=== PATIENT | male | born 1945 | race Caucasian/White ===

== ENCOUNTER 2017-10-12 09:13 | Day surgery (SDC) | payer MEDICARE ==
[~2017-10-12 09:13] MED LIST: ACETAMINOPHEN 1,000 MG/100 ML BTL IV ONE; FAMOTIDINE 20MG TABLET PO ONE; MECLIZINE 25 MG TABLET PO ONE; METOCLOPRAMIDE 10 MG TABLET PO ONE
[2017-10-12] MEDS ORDERED: SEVOFLURANE 250 ML INH ONE (09:14)
[2017-10-12] MEDS ORDERED: ROCURONIUM BROMIDE 50MG/5ML VIAL IV ONE (09:14)
[2017-10-12] MEDS ORDERED: BUPIVACAINE 0.25% W/EPI MPF 30ML VIAL IVP ONE (09:14)
[2017-10-12] MEDS ORDERED: MORPHINE SULFATE 5 MG/ML PFS IVP ONE (09:14)
[2017-10-12] MEDS ORDERED: PROPOFOL 10 MG/ML VIAL IV ONE (09:14)
[2017-10-12] MEDS ORDERED: LIDOCAINE 2% MDV (20MG/ML) 20ML VIAL IV ONE (09:14)
[2017-10-12] MEDS ORDERED: MIDAZOLAM HCL 2MG/2ML VIAL IV ONE (09:14)
--- NOTE | 2017-10-13 14:10 | Operative Note ---
DATE OF SURGERY: 10/12/2017 Surgeon: David Le DO PREOPERATIVE DIAGNOSES: 1. Incarcerated umbilical hernia. 2. Acute on chronic cholecystitis. POSTOPERATIVE DIAGNOSES: 1. Incarcerated umbilical hernia. 2. Acute on chronic cholecystitis. OPERATION: Attempted laparoscopic cholecystectomy with open cholecystectomy, open umbilical herniorrhaphy, segmental small bowel resection. Indication: The patient is a 71-year-old male who presented to the clinic with a year's history of abdominal pain. He felt this was reflux. This happened postprandially. Imaging studies were consistent with cholelithiasis with a very thickened gallbladder wall. The patient had a prior open umbilical hernia repair but he had a recurrence and an incarcerated hernia as well. We did discuss repair as well as cholecystectomy. Risks, benefits, and alternatives were discussed. Risks include but are not limited to bleeding, infection, ductal injury, possible conversion to open, postoperative bile leak, hernia recurrence and he understood this fully. PROCEDURE: Thereafter, consent was signed and questions answered. The patient was taken to the operating room and placed in a supine position. General anesthesia was administered per the department of anesthesia. The patient's abdomen was shaved of hair and prepped and draped in the usual fashion. Adequate timeout was performed. His identity was confirmed. He did receive preoperative DVT prophylaxis and Omnifev as well as antibiotics. The patient had a prior supraumbilical curvilinear incision from a prior repair. Therefore, a curvilinear infraumbilical incision was made. This was carried down to the anterior rectus fascia. The umbilical stalk was encircled and dissected free from the underlying hernia sac. Clean circumferential fascial edges were obtained. The hernia sac was then amputated. Upon entering the hernia sac, the small bowel was densely adherent to this region secondary to the prior mesh. The hernia itself measured about 2.5 cm. I did have to clean off small bowel in order to place a trocar but the mesh appeared to pull at the abdominal wall and skin was attached to the bowel. Upon trying to free this up, a small enterotomy was encountered. I still did not have a free window. Therefore, I did have to extend my umbilical incision slightly in a cephalad direction and found even more small bowel adherent to the mesh. This took about 45 minutes to an hour to free this up, and it was noted to have 2 or 3 full-thickness enterotomies. Therefore, a decision was made to do a segmental small bowel resection. Each end was transected with a GI stapling device. A primary anastomosis was done with the GI stapling device. The small rent in the small bowel mesentery was closed with 2-0 silk as well. This did clear all the small bowel off. Did take out part of the mesh for mesh explantation as well. The omentum was densely adherent here and this was taken out with cautery. The mini laparotomy wound was then closed with #1 Vicryl in interrupted fashion until a 2 cm area remained. Through this, an 11 mm Jitendra port was placed. Adequate pneumoperitoneum was established. The patient was rotated into reverse Trendelenburg with rotation to the left. Under direct visualization, additional 5 mm epigastric and two 5 mm right subcostal ports were placed. The gallbladder was not seen initially. This was densely covered with omentum which was swept down. Only the top of the gallbladder was identified. I was unable to grasp this secondary to taut nature. Therefore, a Priti needle was used to cannulate the gallbladder here. Even with aspiration, we were not able to aspirate any bile. Therefore, traumatic graspers were used holding gallbladder anteriorly which essentially was shredding, spilling copious amounts of pus. I did use suction driving school instructor to use blunt dissection to sweep down the omentum. Visualization still was quite poor and therefore I did switch to a 30-degree angled lens as well as placing additional port on a fan. We really had a difficult time grasping the gallbladder because it kept shredding and essentially was necrotic. All the spillage from the gallbladder really clogged the suction each time even after converting the 5 mm suction to a 10 mm suction. Our visualization was still quite poor and therefore decision was made to convert to open cholecystectomy. Therefore, a right subcostal Natalio incision was made. This was carried down the anterior rectus fascia, through the rectus muscle, posterior rectus, and then finally peritoneal cavity was entered. All the prior ports had been removed. Packs were then placed and the Bookwalter retractor was placed. The duodenum was packed medially, transverse colon was packed inferiorly. Ringed forceps were placed on the gallbladder and a retrograde takedown was then done coning down to the cystic duct and cystic artery. Cystic artery was taken down with the Durga harmonic and the cystic duct was tied off with 0 silk ties. This was then transected and passed off the field. There were some bleeding points in the liver which were controlled with cautery. I did irrigate the proximal ileum with normal saline. There were copious amounts of stones, pus, and gelatinous material which were suctioned free. I question whether this could be a gallbladder malignancy. Two drains were placed; one in the gallbladder fossa and one above the liver. All packs and retractors removed. Sponge counts and instruments counts were correct. Peritoneum was closed with #1 Vicryl in interrupted fashion. The anterior rectus sheath was closed with 0 Vicryl in a [id number] fashion. Both wounds were left open. I did close the port site in the navel. All port sites in the skin were closed with 4-0 Vicryl. He was left intubated and he is transferred to [facility] ICU for further care. Prior to transfer, NG tube and Bolanos catheter were inserted. We will place wound VACs on the open wounds later today. CC: DO GE Curry
== END 2017-10-12 14:00 | disposition short-term general hospital (02) ==
LOC: SUR 09:13
PROVIDERS: ATTEND Surgery
DX: K42.0 Umbilical hernia with obstruction, without gangrene (principal); K81.2 Acute cholecystitis with chronic cholecystitis; I10 Essential (primary) hypertension; E11.9 Type 2 diabetes mellitus without complications; Z79.84 Long term (current) use of oral hypoglycemic drugs; E78.00 Pure hypercholesterolemia, unspecified
CPT/HCPCS: 47600; 49587; 44120; 00790; 36416; 82948; 94002; J2270

== ENCOUNTER 2017-10-26 11:46 | Day surgery (SDC) | payer MEDICARE ==
[~2017-10-26 11:46] MED LIST changes: +CEFAZOLIN 2 Gram 2 GM/50 ML BAG IVPB ONE
[2017-10-26] MEDS ORDERED: PROPOFOL 10 MG/ML VIAL IV ONE (11:47)
[2017-10-26] MEDS ORDERED: LIDOCAINE 2% MDV (20MG/ML) 20ML VIAL IV ONE (11:47)
[2017-10-26] MEDS ORDERED: HYDROMORPHONE HCL 2 MG/ML VIAL IV ONE (11:47)
[2017-10-26] MEDS ORDERED: SEVOFLURANE 250 ML INH ONE (11:47)
[2017-10-26 12:58] LABS: CREATININE 1.4 mg/dL (0.7-1.2)
--- NOTE | 2017-10-27 10:10 | Operative Note ---
DATE OF SURGERY: 10/26/2017 Surgeon: David Le DO PREOPERATIVE DIAGNOSIS: Open abdominal wound. POSTOPERATIVE DIAGNOSIS: Open abdominal wound. OPERATION: Abdominal wound closure. Indication: The patient is a 71-year-old male who about 2-3 weeks ago underwent open cholecystectomy and open segmental small bowel resection. We had to leave 2 wounds open secondary to the contaminated nature. We brought him back today for wound closure. He has been wearing a wound VAC ever since, and the wound has an excellent granulation base. There are no signs of infection and they all were healthy. PROCEDURE: His abdomen was then prepped and draped in the usual sterile fashion. The Natalio incision was closed with skin stapling device. The T'd incision around his periumbilical region was closed in a similar fashion. The apex was closed with 2-0 nylon as well. He tolerated the procedure well. CC: Adan Santana DO [facility]ITALAmalia
== END 2017-10-26 14:25 | disposition home or self-care (01) ==
LOC: SUR 11:46
PROVIDERS: ATTEND Surgery
DX: S31.109A Unspecified open wound of abdominal wall, unspecified quadrant without penetration into peritoneal cavity, initial encounter (principal); I10 Essential (primary) hypertension; E11.9 Type 2 diabetes mellitus without complications; E78.5 Hyperlipidemia, unspecified; E78.00 Pure hypercholesterolemia, unspecified; Z12.5 Encounter for screening for malignant neoplasm of prostate
CPT/HCPCS: 13160; 00400; 82150; 80048; 83036; 80061; G0103; J1170; J0690

== ENCOUNTER 2018-04-03 12:01 | Emergency (ER) | payer MEDICARE ==
[2018-04-03] MEDS ORDERED: NITROGLYCERIN 0.4MG SL TABLET #25 BTL SL ONE ×2 (12:11→12:13)
[2018-04-03] MEDS ORDERED: ASPIRIN 81 MG CHEWABLE TABLET PO ONE (12:13)
[2018-04-03] MEDS ORDERED: 0.9 % SODIUM CHLORIDE 1000ML 1,000 ML IV PRN (12:16)
[2018-04-03] MEDS: NITROGLYCERIN 0.4MG SL TABLET #25 BTL SL PRN ×3 (12:22→12:36)
--- NOTE | 2018-04-03 12:23 | Emergency Department Record ---
History of Present Illness - General Chief Complaint: Chest Pain Stated Complaint: CHEST PAIN Time Seen by Provider: 04/03/18 12:16 Source: Patient, RN notes reviewed - History of Present Illness Initial Comments: left sided chest pain which started last night and he did a total gym work out yesterday and thought it was that. The pain was on and off last night and than at 10:00am today the pain is constant. Patient had a cardiac stent in 2003(ID too) and his current digital media sales consultant is Dr. Nur and it was [place]. No diaphoresis and unable to reproduce the pain with palpation. Patient describes the pain as sharp. MD Complaint: Chest pain - Related Data Previous Rx's Medication Instructions Recorded Metformin HCl 500 mg PO BID #14 tab 10/02/17 Allergies Allergy/AdvReac Type Severity Reaction Status Date / Time No Known Drug Allergies Allergy Verified 10/02/17 12:19 Review of Systems Reviewed: No additional complaints except as noted below Constitutional: Reports: As per HPI. Denies: Chills, Fever, Malaise, Night sweats, Weakness, Weight change Eyes: Reports: As per HPI. Denies: Eye discharge, Eye pain, Photophobia, Vision change ENT: Reports: As per HPI. Denies: Congestion, Dental pain, Ear pain, Epistaxis , Hearing loss, Throat pain Respiratory: Reports: As per HPI. Denies: Cough, Dyspnea, Hemoptysis, Stridor, Wheezes Cardiovascular: Reports: As per HPI, Chest pain. Denies: Arrhythmia, Dyspnea on exertion, Edema, Murmurs, Orthopnea, Palpitations, Paroxysmal nocturnal dyspnea, Rheumatic Fever, Syncope Endocrine: Reports: As per HPI. Denies: Fatigue, Heat or cold intolerance, Polydipsia, Polyuria Gastrointestinal: Reports: As per HPI. Denies: Abdominal pain, Constipation, Diarrhea, Hematemesis, Hematochezia, Melena, Nausea, Vomiting Genitourinary: Reports: As per HPI. Denies: Dysuria, Frequency, Hematuria, Incontinence, Retention, Testicular pain, Testicular mass, Urgency Musculoskeletal: Reports: As per HPI. Denies: Arthralgia, Back pain, Gout, Joint swelling, Myalgia, Neck pain Skin: Reports: As per HPI. Denies: Bruising, Change in color, Change in hair/ nails, Lesions, Pruritus, Rash Neurological: Reports: As per HPI. Denies: Abnormal gait, Confusion, Headache, Numbness, Paresthesias, Seizure, Tingling, Tremors, Vertigo, Weakness Psychiatric: Reports: As per HPI. Denies: Anxiety, Auditory hallucinations, Depression, Homicidal thoughts, Suicidal thoughts, Visual hallucinations Hematological/Lymphatic: Reports: As per HPI. Denies: Anemia, Blood Clots, Easy bleeding, Easy bruising, Swollen glands Past Medical History - SOCIAL HISTORY Smoking Status: Never smoker - RESPIRATORY Hx Respiratory Disorders: Yes Hx Bronchitis: Yes Comment:: sinus drainage chronic uses Zyrtec - CARDIOVASCULAR Hx Cardio Disorders: Yes Hx Abnormal EKG: Yes Hx Cardiac Cath: Yes Hx Heart Attack: Yes Hx Hypertension: Yes (good control on meds) Hx Coronary Artery Disease: Yes Hx Coronary Stent: Yes (x's 2003) - NEURO Hx Neuro Disorders: No - GI Hx GI Disorders: Yes Hx Abdominal Pain: Yes (recent onset, see HPI) Hx Reflux: Yes (on Ranitidine) Hx Hiatal Hernia: Yes Hx Ulcer: Yes (in ) Comment:: 10/12/17 Open sue w/SBR, umbilical herniorrhaphy - Hx Genitourinary Disorders: Yes Hx Bladder Problem: Yes (minor leakage wears a small pad) Hx Prostate Problems: Yes (removal pt had cancer) - ENDOCRINE Hx Endocrine Disorders: Yes Hx Diabetes: Yes (recent Dx on Metformin) Comment:: Metformin held since discharge from [facility] - MUSCULOSKELETAL Hx Musculoskeletal Disorders: Yes Hx Arthritis: Yes - PSYCH Hx Psych Problems: No - HEMATOLOGY/ONCOLOGY Hx Hematology/Oncology Disorders: Yes Hx Cancer: Yes (prostate and skin cancer on forehead) Family Medical History Hx Dementia: Mother Hx Diabetes: Grandparents Hx Heart Disease: Father Hx Resp Disorders: Father Hx Seizures: Mother Physical Exam - General General Appearance: Alert, Oriented x3, Cooperative, No acute distress - Head Head exam: Normal inspection - Eye Eye exam: Normal appearance, PERRL Pupils: Normal accommodation - ENT ENT exam: Normal exam, Mucous membranes moist, Normal external ear exam, Normal orophraynx, TM's normal bilaterally Ear exam: Normal external inspection. negative: External canal tenderness Nasal Exam: Normal inspection. negative: Discharge, Sinus tenderness Mouth exam: Normal external inspection, Tongue normal Teeth exam: Normal inspection. negative: Dental caries Throat exam: Normal inspection. negative: Tonsillar erythema, Tonsillar exudate - Neck Neck exam: Normal inspection, Full ROM. negative: Tenderness - Respiratory Respiratory exam: Normal lung sounds bilaterally. negative: Respiratory distress - Cardiovascular Cardiovascular Exam: Regular rate, Normal rhythm, Normal heart sounds - GI/Abdominal GI/Abdominal exam: Soft, Normal bowel sounds. negative: Tenderness - Rectal Rectal exam: Deferred - exam: Deferred - Extremities Extremities exam: Normal inspection, Full ROM, Normal capillary refill. negative: Tenderness - Back Back exam: Reports: Normal inspection, Full ROM. Denies: Muscle spasm, Rash noted, Tenderness - Neurological Neurological exam: Alert, Normal gait, Oriented X3, Reflexes normal - Psychiatric Psychiatric exam: Normal affect, Normal mood - Skin Skin exam: Dry, Intact, Normal color, Warm Course - Reevaluation(s) Reevaluation #1: patient is pain free and CTA chest negative for PE 04/03/18 15:35 Reevaluation #2: repeat trop neg and patient is chest pain free 04/03/18 16:49 Medical Decision Making - Lab Data Result diagrams: 04/03/18 12:22 04/03/18 12:22 Disposition Clinical Impression: Acute chest wall pain Chest pain Qualifiers: Chest pain type: unspecified Qualified Code(s): R07.9 - Chest pain, unspecified Disposition: Home, Self-Care Condition: (2) Stable Instructions: Chest Wall Pain (ED) Additional Instructions: tylenol for pain follow up with Dr. Santana next week return to Ed if any more chest pain Forms: Patient Portal Access Time of Disposition: 16:49 Quality - Quality Measures Quality Measures: N/A - Blood Pressure Screening Does Patient Have Any of the Following: No, Active Dx of HTN Blood Pressure Classification: Hypertensive Reading Systolic Measurement: 147 Diastolic Measurement: 75 Screening for High Blood Pressure: Patient Exclusion, Hx of HTN [[id number]]
[2018-04-03 12:28] LABS: BASO % 0.1 % (0-6); EOS % 2.1 % (0-6); GRAN % 56.5 % (47-80); HEMATOCRIT 42.6 % (42.0-52.0); HEMOGLOBIN 13.8 gm/dl (14.0-18.0); MEAN CELL VOLUME 89.7 fl (81-97); MEAN CORPUSCULAR HGB CONC 32.4 g/dl (32-36); MEAN PLATELET VOLUME 9.5 fl (7.4-10.4); MONO % 10.3 % (0-9); PLATELET COUNT 201 K/uL (130-400); RED BLOOD COUNT 4.75 M/uL (4.40-5.70); RED CELL DISTRIBUTION WIDTH 14.9 % (11.5-14.5); WHITE BLOOD COUNT W/O DIFF 7.3 K/uL (4.2-12.2)
[2018-04-03 12:38] LABS: BLOOD UREA NITROGEN 21 mg/dL (8-23); CREATININE 1.3 mg/dL (0.7-1.2); EST GLOMERULAR FILTRATION RATE 58 mL/min
[2018-04-03 12:41] LABS: GLUCOSE,RANDOM 151 mg/dL (74-109)
[2018-04-03 12:42] LABS: PARTIAL THROMBOPLASTIN TIME 27.7 SECONDS (24.5-39.1)
--- NOTE | 2018-04-07 08:14 | RADIOLOGY REPORT ---
EXAM: CHEST HISTORY: CHEST PAIN. TECHNIQUE: A single view of the chest were obtained. Comparison: 10/05/15. FINDINGS: The heart is not enlarged. No mediastinal mass. No acute infiltrate or vascular congestion. IMPRESSION: NO ACUTE CARDIAC OR PULMONARY ABNORMALITY. JOB NUMBER: [id number] [facility]
--- NOTE | 2018-04-07 08:22 | CT ANGIOGRAM REPORT ---
EXAM: CT ANGIOGRAPHY OF THE THORAX HISTORY: CHEST PAIN. TECHNIQUE: CT angiography of the thorax with post processing was performed. The amount and type of contrast are recorded in the medical record. Coronal and sagittal post processed MIP images are performed on an independent workstation as part of this examination. Comparison: Chest x-ray 04/03/18. FINDINGS: No pulmonary emboli are identified. No aortic aneurysm or aortic dissection. There are coronary artery calcifications. No mediastinal or hilar mass or adenopathy. There is no pericardial or pleural effusion. No infiltrate or lung consolidation. There are two tiny calcified nodules in the lower left lung likely due to old granulomatous disease. Calcified left hilar lymph nodes are present, also likely related to old granulomatous disease. There is a small hiatal hernia present. Limited upper abdominal images otherwise are unremarkable. No lytic or blastic bone lesion. IMPRESSION: 1. NO PULMONARY EMBOLI. NO AORTIC ANEURYSM OR AORTIC DISSECTION. NO ACUTE THORACIC PROCESS. 2. CORONARY ARTERY CALCIFICATIONS. THERE APPEARS TO BE A CORONARY ARTERY STENT PRESENT. 3. OLD GRANULOMATOUS CHANGES. 4. SMALL HIATAL HERNIA. JOB NUMBER: [id number] [facility]
== END 2018-04-03 17:10 | disposition home or self-care (01) ==
LOC: ER 12:01
DX: R07.89 Other chest pain (principal); Z85.46 Personal history of malignant neoplasm of prostate; E11.9 Type 2 diabetes mellitus without complications; I10 Essential (primary) hypertension
CPT/HCPCS: 99284 ×2; 85025; 85730; 80048; 84484; 85379; 71045; 71275; 93005; 93010; Q9967; 99282

== ENCOUNTER 2018-04-30 08:58 | Day surgery (SDC) | payer MEDICARE ==
[2018-04-30] MEDS ORDERED: PROPOFOL 10 MG/ML VIAL IV ONE ×2 (08:59)
[2018-04-30] MEDS ORDERED: LIDOCAINE 2% MDV (20MG/ML) 20ML VIAL IV ONE ×2 (08:59)
--- NOTE | 2018-05-03 11:30 | Operative Note ---
DATE OF SURGERY: 04/30/2018 SURGEON: Kierra Dsouza MD OPERATION: COLONOSCOPY. INDICATIONS: This is a 72-year-old man with average risk for colorectal cancer who presented for screening colonoscopy. POSTOPERATIVE DIAGNOSIS: Normal colon and terminal ileal mucosa with no neoplasm or ulcerative lesions. ANESTHESIA: Sedation is per Anesthesia. Pulse oximetry was monitored throughout the procedure to maintain O2 saturation of 90% or greater. Supplemental oxygen was administered via nasal cannula. Cardiac and vital signs were monitored throughout the duration of the procedure, and they were stable. The procedure of colonoscopy and risks and alternatives of the procedure, including the risk of bleeding and perforation, among others, were explained to the patient who voiced understanding and agreed to have the procedure done. Physical examination was performed, and the patient was found stable for sedation. PROCEDURE: The patient was placed in the left lateral position. Sedation was initiated. A digital rectal exam was performed and showed some mild external hemorrhoids with no palpable rectal masses. An Olympus PCF-180AL colonoscope was then inserted into the rectum under direct visualization. It was advanced to the cecum without difficulty. The ileocecal valve and appendiceal orifice were identified and photographed. The colonic mucosa was carefully examined upon introduction of the colonoscope. There were no lesions noted. The ileocecal valve was intubated and terminal ileal mucosa was inspected for about 10 cm and it appeared normal. The colonoscope was then withdrawn while carefully examining the colonic mucosal surfaces. No lesions were noted. In the rectum, retroflexion was performed and grade 1 internal hemorrhoids were noted. The colonoscope was then withdrawn and the procedure was terminated. The patient tolerated the procedure well without any immediate complications. The patient remained with stable vital signs and was transferred to the recovery room. RECOMMENDATIONS: 1. The patient should be on a high-fiber diet. 2. The patient is to have a repeat colonoscopy as needed in 10 years. Thank you for allowing me to participate in the care of your patient. CC: DO GE Curry
== END 2018-04-30 10:34 | disposition home or self-care (01) ==
LOC: HOP 08:58
PROVIDERS: ATTEND Internal Medicine Gastroenterology
DX: Z12.11 Encounter for screening for malignant neoplasm of colon (principal)
CPT/HCPCS: 00812; G0121

== ENCOUNTER 2018-12-30 05:54 | Inpatient (IN) | payer MEDICARE ==
[2018-12-30] MEDS ORDERED: SODIUM CHLORIDE 0.9% 500 ML IV ONE (06:19)
--- NOTE | 2018-12-30 06:26 | Emergency Department Record ---
History of Present Illness - General Chief Complaint: Fall Injury Stated Complaint: fall Time Seen by Provider: 12/30/18 06:10 Source: Patient Mode of Arrival: EMS Limitations: No limitations - History of Present Illness Initial Comments: The patient is here due to generalized weakness over the last 3 hours. He has a hx of Met Pancreatic CA and is getting palliative Chemo by Dr. Johnson in her office. The last chemo was 2 days ago. The patient had been doing OK yesterday without any fever, weakness, cough or dysuria. He got up at 3am to go to the bathroom and had generalized weakness to his arms and legs and felt he could not walk. He then slowly slid down to the floor and sat there for a couple of hours prior to calling someone. He did contact his family who called 911. When EMS got to the house the patient was able to walk to the gurney and felt better. Now he is feeling back to normal. The patient denies any recent RORDÍGUEZ, cough, fever, dysuria, or rashes. 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 Witnessed: No Place Fall Occurred: Home Loss of Consciousness: None Prolonged Down Time?: Yes, Hour(s) Symptoms Prior to Fall: None Associated Symptoms: Denies - [place] Coma Scale Eye Response: (4) Open spontaneously Motor Response: (6) Obeys commands Verbal Response: (5) Oriented Shari Total: 15 - Related Data Home Medications Medication Instructions Recorded Confirmed Last Taken Aspirin [Aspir-Low] 81 mg PO DAILY 12/30/18 12/30/18 12/30/18 Pantoprazole Sodium [Protonix] 20 mg PO DAILY 12/30/18 12/30/18 12/29/18 Previous Rx's Medication Instructions Recorded Metformin HCl 500 mg PO BID #14 tab 10/02/17 Allergies Allergy/AdvReac Type Severity Reaction Status Date / Time No Known Drug Allergies Allergy Verified 10/02/17 12:19 Travel Screening - Travel/Exposure Within Last 30 Days Have you traveled within the last 30 days?: No - Travel/Exposure Within Last Year Have you traveled outside the [place] in the last year?: No - Additonal Travel Details Have you been exposed to anyone with a communicable illness?: No - Travel Symptoms Symptom Screening: None Review of Systems Constitutional: Reports: Malaise. Denies: Chills, Fever Eyes: Denies: Eye discharge ENT: Denies: Congestion Respiratory: Denies: Cough, Dyspnea Cardiovascular: Denies: Chest pain Endocrine: Reports: Fatigue Gastrointestinal: Denies: Nausea Genitourinary: Denies: Dysuria Musculoskeletal: Denies: Arthralgia Skin: Denies: Bruising Past Medical History - SOCIAL HISTORY Smoking Status: Never smoker Alcohol Use: None Drug Use: None - RESPIRATORY Hx Respiratory Disorders: Yes Hx Bronchitis: Yes - CARDIOVASCULAR Hx Cardio Disorders: Yes Hx Abnormal EKG: Yes Hx Cardiac Cath: Yes Hx Heart Attack: Yes Hx Hypertension: Yes (good control on meds) Hx Coronary Artery Disease: Yes Hx Coronary Stent: Yes (x's 2003) - NEURO Hx Neuro Disorders: No - GI Hx GI Disorders: Yes Hx Abdominal Pain: Yes (recent onset, see HPI) Hx Reflux: Yes (on Ranitidine) Hx Hiatal Hernia: Yes Hx Ulcer: Yes (in ) Comment:: 10/12/17 Open sue w/SBR, umbilical herniorrhaphy - Hx Genitourinary Disorders: Yes Hx Bladder Problem: Yes (minor leakage wears a small pad) Hx Prostate Problems: Yes (removal pt had cancer) - ENDOCRINE Hx Endocrine Disorders: Yes Hx Diabetes: Yes (recent Dx on Metformin) Comment:: Metformin held since discharge from [facility] - MUSCULOSKELETAL Hx Musculoskeletal Disorders: Yes Hx Arthritis: Yes - PSYCH Hx Psych Problems: No - HEMATOLOGY/ONCOLOGY Hx Hematology/Oncology Disorders: Yes Hx Cancer: Yes (pancreatic, prostate and skin cancer on forehead) Hx Chemotherapy: Yes (3x/moth) Hx Radiation Therapy: No Family Medical History Any Significant Family History?: Yes Hx Dementia: Mother Hx Diabetes: Grandparents Hx Heart Disease: Father Hx Resp Disorders: Father Hx Seizures: Mother Physical Exam - General General Appearance: Alert, Oriented x3, Cooperative, No acute distress - Head Head exam: Atraumatic, Normocephalic, Normal inspection - Eye Eye exam: Normal appearance, PERRL. negative: Conjunctival injection - ENT Throat exam: Normal inspection. negative: Tonsillar erythema, Tonsillar exudate - Neck Neck exam: Normal inspection, Full ROM. negative: Tenderness - Respiratory Respiratory exam: Normal lung sounds bilaterally. negative: Respiratory distress - Cardiovascular Cardiovascular Exam: Regular rate, Normal rhythm, Normal heart sounds. negative: Diastolic murmur, Systolic murmur - GI/Abdominal GI/Abdominal exam: Soft, Normal bowel sounds. negative: Rebound, Rigid, Tenderness - Rectal Rectal exam: Deferred - Extremities Extremities exam: Normal inspection, Full ROM, Normal capillary refill. negative: Calf tenderness, Pedal edema, Tenderness - Neurological Neurological exam: Alert, Oriented X3. negative: Altered, Motor sensory deficit (The motor and sensory exams are 5/5 bilaterally and equal.) - Skin Skin exam: negative: Rash Course Vital Signs 12/30/18 05:58 Temperature 99.8 F H Pulse Rate 76 Respiratory 20 Rate Blood Pressure 112/53 Pulse Ox 95 - Reevaluation(s) Reevaluation #1: The patient is doing better at this time. His repeat temp is 99.3 orally and he is feeling improved. With his lab work appearing worrisome for an infection I di d recommend a short stay hospital admission and the patient did agree. I then did discuss the case with Dr. Maher and he did accept the patient for admission overnight. 12/30/18 07:24 Reevaluation #2: The patient is doing very well at this time and is hemodynamically stable. I have attempted to contact his Oncology group multiple times but have not been successful. Dr. Maher is aware of that fact and will try to contact them later today. I also had a conversation with the patient about his code status. The patient would like to be a DNR and his family who was in the room did agree. 12/30/18 07:33 Medical Decision Making - Data Complexity MDM Data: Labs Ordered and/or Reviewed, X-Ray Ordered and/or Reviewed - Lab Data Result diagrams: 12/30/18 06:35 12/30/18 06:35 - Radiology Data Radiology results: Report reviewed (CXR: Neg.) Disposition Disposition: Admit Clinical Impression: Pyrexia of unknown origin Disposition: Still a Patient at [facility] [place] Decision to Admit: Admit from ER Decision to Admit Date: 12/30/18 Decision to Admit Time: 07:27 Accepting Physician: Nika Time Discussed w/Accepting Physician: 07:28 Condition: (2) Stable Forms: Patient Portal Access Time of Disposition: 07:28 Quality - Quality Measures Quality Measures: N/A - Blood Pressure Screening View Details: Yes Does Patient Have Any of the Following: No Blood Pressure Classification: Normal BP Reading Systolic Measurement: 112 Diastolic Measurement: 53 Screening for High Blood Pressure: < Normal BP, F/U Not Required > [G8708]
[2018-12-30 06:51] LABS: BASO % 0.1 % (0-6); EOS % 0.1 % (0-6); HEMATOCRIT 26.5 % (42.0-52.0); HEMOGLOBIN 8.3 gm/dl (14.0-18.0); LYMPH % 6.1 % (16-45); MEAN CELL VOLUME 95.7 fl (81-97); MEAN CORPUSCULAR HGB CONC 31.3 g/dl (32-36); MEAN PLATELET VOLUME 8.2 fl (7.4-10.4); MONO % 2.8 % (0-9); PLATELET COUNT 247 K/uL (130-400); RED BLOOD COUNT 2.77 M/uL (4.40-5.70); RED CELL DISTRIBUTION WIDTH 18.4 % (11.5-14.5); URINE APPEARANCE SL CLOUDY; URINE BILIRUBIN NEGATIVE (NEGATIVE); URINE BLOOD SMALL (NEGATIVE); URINE COLOR YELLOW; URINE GLUCOSE (UA) NEGATIVE (NEGATIVE); URINE KETONE NEGATIVE (NEGATIVE); URINE LEUKOCYTE ESTERASE NEGATIVE (NEGATIVE); URINE NITRITE NEGATIVE (NEGATIVE); URINE UROBILINOGEN 0.2 E.U./dL (0.20 - 1.00); WHITE BLOOD COUNT W/O DIFF 16.7 K/uL (4.2-12.2)
[2018-12-30 06:53] LABS: MEAN CORPUSCULAR HEMOGLOBIN 29.9 pg (27-33)
[2018-12-30 07:00] LABS: BILIRUBIN,TOTAL 0.7 mg/dL (0.2-1.0); CREATININE 1.5 mg/dL (0.7-1.2)
[2018-12-30 07:02] LABS: URINE EPITHELIAL CELLS 0 - 2 (FEW); URINE RBC 0 - 2 (NONE SEEN); URINE WBC NONE SEEN (0-2/hpf)
[2018-12-30 07:03] LABS: URINE BACTERIA NONE SEEN
[2018-12-30 07:05] LABS: ALBUMIN 3.3 g/dL (4.0-5.0); BILIRUBIN,DIRECT 0.3 mg/dL (0-0.3); C-REACTIVE PROTEIN 17.97 mg/dL (<0.5)
[2018-12-30] MEDS ORDERED: CEFTRIAXONE 1GM/50ML BAG 1 GM/50 ML BAG IVPB ONE (07:22)
[2018-12-30] MEDS: PATIENT OWN MED: CETIRIZINE 10 MG PO SCH ×2 (12:30→21:02)
[2018-12-30] MEDS: PATIENT OWN MED: RANITIDINE 150 MG PO SCH ×2 (12:30→21:03)
[2018-12-30] MEDS: PATIENT OWN MED: METFORMIN 1000 MG PO SCH ×2 (12:30→21:02)
[2018-12-30] MEDS: 0.9 % SODIUM CHLORIDE 1000ML 1,000 ML IV PRN (16:13)
[2018-12-30] MEDS ORDERED: HUMULIN R 100 UNIT/ML VIAL SQ ONE (18:16)
[2018-12-30] MEDS: ACETAMINOPHEN 325 MG TAB PO PRN (18:33)
[2018-12-30] MEDS: CEFTRIAXONE 1GM/50ML BAG 1 GM/50 ML BAG IVPB SCH (20:36)
[2018-12-30] MEDS ORDERED: PATIENT OWN MED: METOPROLOL SUCCINATE 50 MG PO SCH (22:00)
[2018-12-30] MEDS ORDERED: ASPIRIN 81 MG PO SCH (22:00)
[2018-12-30] MEDS ORDERED: PATIENT OWN MED: SIMVASTATIN 40 MG PO SCH (22:00)
[2018-12-31] MEDS: ACETAMINOPHEN 325 MG TAB PO PRN ×2 (00:37→13:35)
[2018-12-31] MEDS: PANTOPRAZOLE SODIUM 40 MG TABLET PO SCH (06:23)
[2018-12-31 06:54] LABS: HEMATOCRIT 23.7 % (42.0-52.0); HEMOGLOBIN 7.3 gm/dl (14.0-18.0); MEAN CELL VOLUME 97.5 fl (81-97); MEAN CORPUSCULAR HGB CONC 30.8 g/dl (32-36); MEAN PLATELET VOLUME 8.7 fl (7.4-10.4); PLATELET COUNT 206 K/uL (130-400); RED BLOOD COUNT 2.43 M/uL (4.40-5.70); RED CELL DISTRIBUTION WIDTH 18.2 % (11.5-14.5); WHITE BLOOD COUNT W/O DIFF 7.6 K/uL (4.2-12.2)
[2018-12-31 07:14] LABS: HYPOCHROMIA 1+; PLATELET ESTIMATE NORMAL (NORMAL)
--- NOTE | 2018-12-31 08:30 | History and Physical Report ---
DATE: 12/30/2018 at 2 p.m. CHIEF COMPLAINT: Weakness. Fall. HISTORY OF PRESENT ILLNESS: This 73-year-old male presented to the emergency department after easing himself to the ground. He states he slid down to the ground, fell, was very weak, could not get up for a couple of hours. Called EMS. He was transported to the emergency department, evaluated by Dr. Guillen who was concerned about his white count being at 16,000. Admitted to the hospital for possible sepsis. Started him on Rocephin 1 g q.12 h. and he tried to get ahold of Dr. Hoffman but was unsuccessful. The patient is also anemic with hemoglobin of 8.3. The patient has pancreatic cancer diagnosed in September 2018, getting chemotherapy actively. He has finished up this round and he has a week off. The patient denies any symptoms. No runny nose, cough, cold, or congestion. No chest discomfort. No nausea, vomiting, diarrhea. No dysuria and no fevers, or slight temperature of 99 in the emergency department but nothing more than that was documented so far in this hospitalization. The patient came in at about 7 a.m. this morning to the inpatient side. The patient now states he is back to his baseline and would like to go home. The patient is ambulating around the room without difficulties. PAST MEDICAL HISTORY: Pancreatic cancer diagnosed September 2018. Primary doctor, Dr. Thierry Santana, oncologist, Dr. Hoffman. Ongoing chemotherapy at this time. He is a Do Not Resuscitate. Hypertension, hypercholesterolemia, GERD, allergies. PAST SURGICAL HISTORY: He has had cardiac stents in 2003, prostate removal 2015, umbilical hernia in 2012, EGD, open cholecystectomy in September 2017, small bowel resection, and he has had prostate cancer. MEDICATIONS: 1. Lisinopril/hydrochlorothiazide 10/12.5 one a day. 2. Centrum Silver 1 a day. 3. Vitamin D3, 1000 units daily. 4. Metformin 500 mg b.i.d. 5. Simvastatin 40 mg at h.s. 6. Metoprolol succinate 50 mg daily. 7. Aspirin 81 mg daily. 8. Protonix 40 mg daily. 9. Zyrtec 10 mg daily. 10. Ranitidine 150 mg b.i.d. 11. Zofran 8 mg q.8 h. p.r.n. ALLERGIES: No known drug allergies. FAMILY/PSYCHOSOCIAL HISTORY: Unremarkable. Mother had dementia. Grandparents had diabetes. Father had heart disease and respiratory problems. Mother had seizures. REVIEW OF SYSTEMS: HEENT: No upper respiratory infection symptoms, cough, cold, or congestion. Cardiovascular: No chest pain, palpitations, or arrhythmia. Respiratory: No cough, cold, or congestion. No smoking history. Gastrointestinal: No nausea, vomiting, diarrhea, black stools, or bloody stools. Genitourinary: No dysuria, hematuria, frequency, or burning on urination. Musculoskeletal: No joint or bone abnormalities. Neurological: No CVA, paralysis, or paresthesias. Endocrine: He has diabetes mellitus type 2. Integument: No rash, ulcers, change in moles, or yellow skin. PHYSICAL EXAMINATION: VITALS: Height 5 feet 10 inches, weight 167 pounds. Temperature 98.1, pulse 79, blood pressure 128/41, respiratory rate 16, pulse ox 100% on room air. His highest temperature documented in the chart is 99.8. HEENT: Pupils are equal, round, and reactive to light and accommodation. Extraocular muscles are intact. Throat is clear. Nose is clear. Tympanic membranes are wisdom. NECK: Supple. No jugular venous distention. No hepatojugular reflux. No carotid bruits. Thyroid is smooth. CARDIOVASCULAR: Regular rate and rhythm without murmurs, clicks, rubs, or gallops. RESPIRATORY: Breath sounds are equal bilaterally. Clear to auscultation and percussion. ABDOMEN: Soft, nontender. No hepatosplenomegaly, no masses, no tenderness. Bowel sounds are active. No bruits. EXTREMITIES: No pitting edema. No cyanosis, no clubbing. Full range of motion. Peripheral pulses are good. BREASTS: Normal male breasts. RECTAL: Exam deferred. GENITALIA: Deferred. NEUROLOGIC: Cranial nerves II-XII intact. No gross defects. Sensation normal, strength normal. Deep tendon reflexes equal bilaterally with Babinski negative. MENTAL STATUS: Alert and oriented x3. IMPRESSION: 1. Weakness. 2. Dehydration. 3. Anemia at 8.3. 4. Pancreatic cancer, ongoing chemotherapy. Dr. Hoffman is the oncologist. 5. Hypertension. 6. Hypercholesterolemia. 7. Gastroesophageal reflux disease. PLAN: Continue the Rocephin 1 g q.12 h. Watch vitals. Decide tomorrow about going home. Repeat the CBC and procalcitonin in the morning. MTDD
[2018-12-31] MEDS: NOVOLOG FLEXPEN (INSULIN ASPART) 100 UNITS/ML SQ SCH ×3 (08:33→17:15)
[2018-12-31] MEDS: CEFTRIAXONE 1GM/50ML BAG 1 GM/50 ML BAG IVPB SCH ×2 (08:33→21:00)
[2018-12-31] MEDS: LISINOPRIL 20 MG TABLET PO SCH (10:53)
[2018-12-31] MEDS: AZITHROMYCIN 500 MG TABLET PO SCH (10:54)
[2018-12-31] MEDS: PATIENT OWN MED: METFORMIN 1000 MG PO SCH (10:56)
[2018-12-31 11:48] LABS: ABO GROUP O; ANTIBODY SCREEN NEGATIVE (NEGATIVE); IMMED. SPIN CROSSMATCH COMPATIBLE; RH TYPE POSITIVE
[2018-12-31] MEDS: PATIENT OWN MED: RANITIDINE 150 MG PO SCH (13:34)
[2018-12-31] MEDS: 0.9 % SODIUM CHLORIDE 1000ML 1,000 ML IV PRN (16:57)
[2018-12-31] MEDS: ENOXAPARIN 40 MG/0.4 ML SYR SQ SCH (16:57)
[2018-12-31] MEDS: POLYETHYLENE GLY 17 GM PACKET PO SCH (16:58)
[2018-12-31] MEDS: PATIENT OWN MED: CETIRIZINE 10 MG PO SCH (17:14)
[2018-12-31] MEDS: LORATADINE 10 MG TABLET PO SCH (21:45)
[2018-12-31] MEDS: RANITIDINE HCL 150 MG TABLET PO SCH (21:45)
[2018-12-31] MEDS ORDERED: METOPROLOL SUCC 50 MG TABLET PO SCH (22:00)
[2018-12-31] MEDS ORDERED: ASPIRIN 81 MG TABEC PO SCH (22:00)
[2018-12-31] MEDS ORDERED: SIMVASTATIN 20 MG TABLET PO SCH (22:00)
[2019-01-01] MEDS: 0.9 % SODIUM CHLORIDE 1000ML 1,000 ML IV PRN (02:00)
[2019-01-01] MEDS: PANTOPRAZOLE SODIUM 40 MG TABLET PO SCH (06:09)
[2019-01-01 07:24] LABS: ABSOLUTE NEUTROPHIL COUNT 4.26; BASO % 0.2 % (0-6); EOS % 1.2 % (0-6); GRAN % 72.3 % (47-80); HEMATOCRIT 25.2 % (42.0-52.0); HEMOGLOBIN 7.8 gm/dl (14.0-18.0); LYMPH % 18.2 % (16-45); MEAN CELL VOLUME 96.2 fl (81-97); MEAN PLATELET VOLUME 8.5 fl (7.4-10.4); MONO % 8.1 % (0-9); PLATELET COUNT 220 K/uL (130-400); RED BLOOD COUNT 2.62 M/uL (4.40-5.70); RED CELL DISTRIBUTION WIDTH 17.7 % (11.5-14.5); WHITE BLOOD COUNT W/O DIFF 5.9 K/uL (4.2-12.2)
[2019-01-01 07:25] LABS: MEAN CORPUSCULAR HEMOGLOBIN 29.7 pg (27-33)
[2019-01-01 07:40] LABS: BLOOD UREA NITROGEN 17 mg/dL (8-23); CREATININE 1.2 mg/dL (0.7-1.2); EST GLOMERULAR FILTRATION RATE > 60 mL/min; GLUCOSE,RANDOM 168 mg/dL (74-109)
[2019-01-01] MEDS ORDERED: METFORMIN 500 MG TABLET PO SCH (08:00)
[2019-01-01] MEDS: NOVOLOG FLEXPEN (INSULIN ASPART) 100 UNITS/ML SQ SCH (08:17)
[2019-01-01] MEDS: CEFTRIAXONE 1GM/50ML BAG 1 GM/50 ML BAG IVPB SCH (08:23)
[2019-01-01] MEDS: ENOXAPARIN 40 MG/0.4 ML SYR SQ SCH (09:12)
[2019-01-01] MEDS: AZITHROMYCIN 500 MG TABLET PO SCH (09:13)
--- NOTE | 2019-01-01 09:41 | Inpatient Certification ---
Inpatient Certification Admit to inpatient care: Based on my medical assessment, after consideration of patient's risk factors (age, co-morbidities and patient presenting symptoms and acuity), I expect that this patient will remain in the hospital greater than or equal to two midnights and that the services needed warrant inpatient care because:fever , anemia and weakness and pancreatic cancer Patient Risk Factors: [pancreatic cancer ] Estimated length of stay: [3 days] The patient may reasonably be expected to be discharged or transferred to a hospital within 96 hours after admission to [facility]. Services needed: [IV rocephin and blood transfusion] Post hospital care (if known): [] I certify that my determination is in accordance with my understanding of Medicare requirements for reasonable and necessary inpatient services. 01/01/19 09:39
[2019-01-01] MEDS: POLYETHYLENE GLY 17 GM PACKET PO SCH (10:37)
[2019-01-01] MEDS: RANITIDINE HCL 150 MG TABLET PO SCH (10:38)
[2019-01-01] MEDS: LISINOPRIL 20 MG TABLET PO SCH (10:38)
[2019-01-01] MEDS: LORATADINE 10 MG TABLET PO SCH (10:38)
--- NOTE | 2019-01-01 11:40 | Discharge Note ---
VTE H&P Assessment - Risk for VTE Risk for VTE: Yes Risk Level: Moderate Risk Assessment Date: 12/31/18 Risk Assessment Time: 17:00 VTE Orders Placed or Will Be Placed: Yes Discharge Medications - Discharge Medications Prescriptions: Azithromycin 250 mg PO DAILY #6 tablet Cephalexin [Keflex] 500 mg PO QID #40 cap Home Medications: Ambulatory Orders Cetirizine HCl [Zyrtec] 10 mg PO BID 10/02/17 [Last Taken 12/29/18] Cholecalciferol (Vitamin D3) [Vitamin D3] 1,000 unit PO DAILY 10/02/17 [Last Taken 12/29/18] Lisinopril/Hydrochlorothiazide [Lisinopril-Hctz 20-12.5 mg Tab] 1 each PO DAILY 10/02/17 [Last Taken 12/29/18] Metformin HCl 500 mg PO BID #14 tab 10/02/17 [Last Taken 12/29/18] Metoprolol Succinate [Toprol Xl] 50 mg PO QHS 10/02/17 [Last Taken 12/29/18] Multivit-Min/FA/Lycopen/Lutein [Centrum Silver Men Tablet] 1 each PO DAILY 10/02/17 [Last Taken 12/29/18] Ranitidine HCl [Zantac] 150 mg PO BID 10/02/17 [Last Taken 12/29/18] Simvastatin [Zocor] 40 mg PO QHS 10/02/17 [Last Taken 12/29/18] Aspirin [Aspir-Low] 81 mg PO DAILY 12/30/18 [Last Taken 12/30/18] Pantoprazole Sodium [Protonix] 20 mg PO DAILY 12/30/18 [Last Taken 12/29/18] Azithromycin 250 mg PO DAILY #6 tablet 01/01/19 [Last Taken Unknown] Cephalexin [Keflex] 500 mg PO QID #40 cap 01/01/19 [Last Taken Unknown] Discharge Note - Date Date of Discharge Note: 01/01/19 Disposition: Home, Self-Care Condition: (2) Stable Additional Instructions: follow up with Dr. Santana in one week follow up with Dr. Johnson on as scheduled Forms: Patient Portal Access
--- NOTE | 2019-01-03 09:00 | Discharge Summary ---
DATE OF SERVICE: 01/01/2019. DISCHARGE DIAGNOSES: 1. Fever, unknown source. 2. Possible right lower lobe pneumonia with rales on clinical exam, but no CT or chest x-ray findings for pneumonia. 3. Anemia secondary to chemo. 4. Pancreatic cancer with liver mets. 5. Weakness, resolving. 6. Dehydration, resolving. 7. Hypertension. 8. Hypercholesterolemia. 9. Gastroesophageal reflux disease. ATTENDING PHYSICIAN: Junior Maher D.O. REASON FOR HOSPITALIZATION: Weakness and a fall. HISTORY OF PRESENT ILLNESS: This 73-year-old male presented to the emergency department after easing himself to the ground. He states he slid down to the ground, was very weak, could not get up for a couple of hours. Called EMS. He was transferred to the emergency department, evaluated by Dr. Guillen. He was concerned about his white count being 16,000. Admitted to the hospital for possible sepsis. Started on Rocephin [address] Guillen tried to get a hold of Dr. Johnson, but was unsuccessful. Patient was anemic, hemoglobin of 8.3. Has pancreatic cancer diagnosed September of 2018. Is a Do Not Resuscitate. Getting ongoing chemotherapy. He has no symptoms. No runny nose, cough, cold, or congestion. No chest discomfort. No nausea, vomiting, diarrhea. No dysuria. He does have fever slightly, 99.9 in the emergency department. Patient, when I saw him, said he was back to his baseline 4 or 5 hours after coming to the hospital and wanted to go home. However, he mounted a fever of 102 in the afternoon of admission, and kept him for further care. He had a CT of the chest and abdomen and pelvis. He had blood cultures that are pending, no growth at this time, at the time of discharge. He was started on azithromycin, along with the Rocephin. Significant findings from examination: Chest x-ray negative for cardiopulmonary problems. CT of the chest showing coronary stents with atelectasis in the bases of the lungs. No signs of an infiltrate. CT of the abdomen and pelvis showing elevated right hemidiaphragm. Calcified granuloma, left lung base. Gallbladder absent. Biliary stent is in place. Bile ducts dilated. Three spots in the liver, maybe a 4th spot. Prominent pancreatic head, more prominence. He also had a Hemoccult stool which was negative. His hemoglobin was 8.3 when he came in. It went down to 7.3. Gave him 1 unit of blood, which came up to 7.8. Patient was admitted inpatient because of the fever, needing blood transfusion, and further evaluation and IV antibiotics. HOSPITAL COURSE: Patient gradually improved. Was afebrile for the past 24 hours. Discussed the case with Dr. Johnson on discharge. Condition at discharge much improved. DISCHARGE INSTRUCTIONS: Follow up with Dr. Johnson on Thursday as scheduled. Follow up with Dr. Santana in 1 week. Sending him home on Keflex 500 mg q.i.d. for 10 more days, azithromycin 250 for 6 more days. Continue his home medications. LABORATORY DATA: Also under lab work or significant findings, the procalcitonin initially in the ER was 1.49 and dropped down the next day to 1.09. His discharge electrolytes: Potassium is 3.7, sodium is 131, chloride is 97, BUN is 17, creatinine is 1.2. His white count on discharge, WBC is 5900, hemoglobin 7.8, his platelet count is 220,000, the granulocytes 72%, lymphocytes 18%. Hemoccult stool is negative. Urine is negative. MTDD
--- NOTE | 2019-01-03 09:55 | CT SCAN REPORT ---
EXAM: CT OF THE CHEST WITHOUT CONTRAST HISTORY: FEVER. RALES IN RIGHT LOWER LOBE OF CHEST. HISTORY OF PANCREATIC MALIGNANCY. TECHNIQUE: Routine noncontrast CT of the chest was obtained. Comparison: CT angiogram of the chest dated 04/03/18. Same day CT of the abdomen and pelvis without contrast. FINDINGS: The heart is not enlarged. Atherosclerotic calcification is scattered throughout the coronary arteries. There is a left anterior descending artery stent in place. Pericardial fluid volume is at the upper limits of normal. This is more pronounced than on the prior examination. The thoracic aorta is tortuous and atherosclerotic without focal aneurysmal dilatation. No new mediastinal or hilar mass/lymphadenopathy is seen. The central airways are clear. Calcified granulomata are again noted within each lung base and the left lung apex, stable. No definite new or enlarging lung nodule. There is moderate elevation of the right hemidiaphragm. Increased opacity in the right hemithorax space, primarily linear in configuration is consistent with atelectasis. Mild infiltrate less likely. There is minimal dependent atelectasis within the left lung base as well. No definite pleural or pericardial effusion. The adrenal glands are incompletely imaged. Please see report from same day CT abdomen examination for findings in the upper abdomen. No suspicious lytic or blastic bone lesion. IMPRESSION: 1. MODERATE ELEVATION OF THE RIGHT HEMIDIAPHRAGM. THERE IS MILD ADJACENT AIR SPACE DISEASE LIKELY ATELECTASIS RATHER THAN INFILTRATE. MILD DEPENDENT ATELECTASIS IN THE LEFT LUNG BASE. NO LUNG CONSOLIDATION NOR PLEURAL EFFUSION. 2. HEALED GRANULOMATOUS DISEASE IN THE LEFT HILUM AND IN EACH LUNG. 3. DIFFUSE ATHEROSCLEROSIS OF THE CORONARY ARTERIES. JOB NUMBER: [id number] [facility]
--- NOTE | 2019-01-03 10:16 | CT SCAN REPORT ---
EXAM: CT OF THE ABDOMEN AND PELVIS WITHOUT CONTRAST HISTORY: RECENT DIAGNOSIS OF PANCREATIC CARCINOMA WITH METASTASIS TO LIVER. PATIENT ON CHEMOTHERAPY. FEVER AND WEAKNESS. TECHNIQUE: Helical CT examination of the abdomen and pelvis was performed without oral or intravenous contrast administration. Comparison: Abdominal ultrasound dated 10/19/18. CT abdomen and pelvis without and with contrast dated 01/10/14. FINDINGS: There is moderate elevation of the right hemidiaphragm. There is mild air space disease in the adjacent right lung base consistent with atelectasis or less likely infiltrate. Minimal dependent atelectasis in the left lung base. A few tiny calcified granulomata are again noted within the left lung base. The pericardial fluid volume is at the upper limits of normal. Diffuse atherosclerosis of the coronary arteries with left anterior descending artery stent in place. The gallbladder is surgically absent. A biliary stent is in place. Its superior end is at the level of the right hepatic lobe and its distal end at the level of the second portion of the duodenum. There is pneumobilia within the superior aspect of the right liver lobe. There does appear to be dilatation of the bile ducts within the left liver lobe. There is a hypodense mass within the anterior segment of the right liver lobe near its junction with the left lobe adjacent to the gallbladder fossa. This measures 3.8 x 4.4 cm. An additional mass within the anterior segment of the mid right liver lobe measures 1.8 x 1.7 cm. A third mass is located in the lateral segment of the left liver lobe measuring 2.0 x 1.7 cm. There may be a tiny fourth lesion in the inferior right liver lobe as seen on series 3 image 50 measuring 9 mm. These findings are suspicious for metastatic disease. The spleen, adrenal glands, and kidneys are without focal abnormality. The pancreatic head/neck appears mildly prominent though no definite mass is visualized. The remainder of the pancreas is unremarkable. No intraabdominal nor retroperitoneal lymphadenopathy. There is diffuse atherosclerosis without aneurysmal dilatation of the abdominal aorta nor iliac arteries. There is moderate bilateral perinephric fat stranding. This appears more pronounced than on the prior CT urogram dated 01/10/14. The etiology of this is uncertain. This may relate to nonspecific edema versus scarring. No pelvic mass, lymphadenopathy, or free pelvic fluid. No intrinsic urinary bladder abnormality. No gross bowel dilatation nor bowel wall thickening. Occasional diverticula are noted within the left colon without evidence of diverticulitis. There is a small bowel anastomosis within the mid abdomen. No lytic or blastic bone lesion. IMPRESSION: 1. COMMON DUCT STENT IN PLACE WITH ITS SUPERIOR MARGIN AT THE LEVEL OF THE RIGHT HEPATIC DUCT AND ITS DISTAL MARGIN IN THE REGION OF THE LUMEN OF THE SECOND PORTION OF THE DUODENUM. PNEUMOBILIA. THERE DOES APPEAR TO BE DILATATION OF INTRAHEPATIC BILE DUCTS IN THE LEFT LOBE. 2. SEVERAL HYPODENSE HEPATIC MASSES CONSISTENT WITH METASTATIC DISEASE. THE PANCREATIC NECK/HEAD DOES APPEAR MILDLY PROMINENT THOUGH NO DEFINITE MASS IS VISUALIZED. 3. MODERATE ELEVATION OF THE RIGHT HEMIDIAPHRAGM ASSOCIATED WITH RIGHT BASILAR ATELECTASIS. MINIMAL DEPENDENT ATELECTASIS IN THE LEFT LUNG BASE. HEALED GRANULOMATOUS DISEASE IN THE LEFT LUNG BASE. CORONARY ARTERY CALCIFICATIONS. BORDERLINE PERICARDIAL EFFUSION. 4. MODERATE PERINEPHRIC FAT STRANDING MAY ALL RELATE TO SCARRING THOUGH NONSPECIFIC EDEMA IS NOT EXCLUDED. JOB NUMBER: [id number] MTDD
--- NOTE | 2019-01-03 13:23 | RADIOLOGY REPORT ---
VIEW: 2 view chest. HISTORY: Sudden onset weakness, fever. TECHNIQUE: PA and lateral upright views of the chest were obtained. COMPARISON: 04/03/2018 and 10/15/2015. FINDINGS: The heart, mediastinum, and pulmonary vasculature are normal. There is chronic elevation of the right hemidiaphragm. There is minor atelectasis at the left lung base. No definite acute infiltrates are identified. There was no pneumothorax or effusion. The bones appear intact. IMPRESSION: 1. Mild left basilar atelectasis. 2. No acute intrathoracic pathology identified. MTDD
== END 2019-01-01 12:57 | disposition home or self-care (01) | DRG 864 ==
LOC: ER 05:54 → MEDSURG 08:10 → UNDOADMOB 08:10 → OBSVTOIN 12:01 → INTOOBSV 12:01 → OBSVTOIN 12-31 12:01 → MEDSURG 12-31 12:01
PROVIDERS: ADMIT Emergency Medicine; ATTEND Emergency Medicine
DX: R50.9 Fever, unspecified (principal); I10 Essential (primary) hypertension; I25.10 Atherosclerotic heart disease of native coronary artery without angina pectoris; I25.2 Old myocardial infarction; E11.9 Type 2 diabetes mellitus without complications; Z79.4 Long term (current) use of insulin; K21.9 Gastro-esophageal reflux disease without esophagitis; K44.9 Diaphragmatic hernia without obstruction or gangrene; Z90.79 Acquired absence of other genital organ(s); M19.90 Unspecified osteoarthritis, unspecified site; Z95.5 Presence of coronary angioplasty implant and graft; Z66 Do not resuscitate; W19.XXXA Unspecified fall, initial encounter; Z85.46 Personal history of malignant neoplasm of prostate; Z91.81 History of falling; Z85.828 Personal history of other malignant neoplasm of skin; Z85.07 Personal history of malignant neoplasm of pancreas; Z86.11 Personal history of tuberculosis
CPT/HCPCS: 36430; 83605; 80076; 86140; 80048; 36416; 81001; 82948; 84145 ×2; 85027 ×2; 86900; 86901; 86850; 71046; 71250; 74176; J0696 ×2; 82272; 85025; 96365; 99223; 99233; 99239; 99285; J1650

== ENCOUNTER 2019-01-10 08:46 | Day surgery (SDC) | payer MEDICARE ==
[~2019-01-10 08:46] MED LIST changes: -ACETAMINOPHEN 1,000 MG/100 ML BTL IV ONE; +CEFAZOLIN 1 Gram 1 GM/50 ML BAG IVPB ONE; -CEFAZOLIN 2 Gram 2 GM/50 ML BAG IVPB ONE; -FAMOTIDINE 20MG TABLET PO ONE; -MECLIZINE 25 MG TABLET PO ONE; -METOCLOPRAMIDE 10 MG TABLET PO ONE
[2019-01-10] MEDS ORDERED: FENTANYL PF 100MCG/2ML VIAL IV ONE (08:47)
[2019-01-10] MEDS ORDERED: CEFAZOLIN 2 Gram 2 GM/50 ML BAG IVPB ONE (08:47)
[2019-01-10] MEDS ORDERED: PROPOFOL 10 MG/ML VIAL IV ONE (08:47)
[2019-01-10] MEDS ORDERED: MIDAZOLAM HCL 2MG/2ML VIAL IV ONE (08:47)
[2019-01-10] MEDS ORDERED: RINGERS SOLUTION,LACTATED 1,000 ML IV ONE (09:20)
[2019-01-10] MEDS ORDERED: CEFAZOLIN 1G VIAL IVP ONE (09:45)
--- NOTE | 2019-01-11 10:00 | Operative Note ---
DATE OF SURGERY: 01/10/2019 REFERRING PHYSICIAN: Adan Santana D.O. PREOPERATIVE DIAGNOSIS: Metastatic pancreatic cancer. POSTOPERATIVE DIAGNOSIS: Metastatic pancreatic cancer. OPERATION: Attempted Infusaport placement with fluoroscopy. SURGEON: David Le D.O. INDICATION: Patient is a 73-year-old male who had the unfortunate recent diagnosis of metastatic pancreatic cancer. We did discuss Infusaport. Risks, benefits, and alternatives were discussed. Risk of bleeding, infection, and a 1% chance of pneumothorax. He understood this fully. PROCEDURE: Therefore, consent was signed and questions answered. He was taken to the operating room and placed in the supine position. General anesthesia was administered per Department of Anesthesia. Patient's arms were tucked at his side, and a roll had been placed preoperatively. His chest had been shaved, prepped, and draped in sterile fashion. Patient presents sedated per Department of Anesthesia. He was rotated into Trendelenburg position. At this time, adequate timeout was performed. He did receive preoperative antibiotic. At this time, the periclavicular region on the left was anesthetized with a total of 5 mL of Exparel. At this time, an 18-gauge curved fine needle was used to cannulate the left subclavian vein on the second attempt. Guidewire was inserted but would not feed past the head of the clavicle. We did try to rotate his arm in a cephalad and caudad direction, without success. This was then reattempted, and the same problem we had where we could not pass the wire. I did attempt this on a couple of other different occasions, without success of vascular cannulation. This side was then abandoned, and attention was turned to the right side. Here, I did attempt about 5 times to cannulate his subclavian vein; however, I was unable to do so. I never even received flash despite multiple positioning attempts. Therefore, the decision was made to stop the procedure. We will obtain a chest x-ray postoperatively to rule out any issues of pneumothorax, and we will consult Interventional Radiology for Infusaport placement. Thank you for this referral. [facility] NETWORKAmalia
--- NOTE | 2019-01-12 10:38 | RADIOLOGY REPORT ---
STUDY: Single-view chest. CLINICAL HISTORY: Unsuccessful Infusaport catheter insertion attempt. History of pancreatic cancer. TECHNIQUE: A single AP upright view of the chest was performed. COMPARISON: 12/30/2018 FINDINGS: There is breathing motion artifact. The heart, mediastinum, and pulmonary vasculature appear normal. There are no acute infiltrates or effusions. There is no visible pneumothorax. A stable calcified granuloma is present at the left apex. No acute osseous abnormalities are identified. IMPRESSION: No acute chest pathology. There is no pneumothorax. MTDD
== END 2019-01-10 11:30 | disposition home or self-care (01) ==
LOC: SUR 08:46
PROVIDERS: ATTEND Surgery
DX: C25.9 Malignant neoplasm of pancreas, unspecified (principal)
CPT/HCPCS: 36561; 00532; 80053; 36416; 82948; 85027; 71045; 76000; C1769; J3010; J0690; J7120

== ENCOUNTER 2019-03-01 22:09 | Emergency (ER) | payer MEDICARE ==
--- NOTE | 2019-03-01 22:30 | Emergency Department Record ---
History of Present Illness - General Chief complaint: Weakness Stated complaint: FEVER,WEAKNESS Time Seen by Provider: 03/01/19 22:21 Source: Patient Mode of Arrival: Ambulatory Limitations: No limitations - History of Present Illness Initial comments: 73 yo male presents to ED for low-grade fever symptoms and generalized weakness that developed this afternoon following chemo treatment this morning. Patient reports recent increased exercise activity at home with use of his treadmill, denies cough, abdominal pain, urinary symptoms, flank pain, headache symptoms, or rashes on examination. Patient is currently being treated for pancreatic cancer with Dr. Layhe. MACK Complaint: Generalized weakness Onset/Timin -: Days(s) Severity: Moderate Severity scale (1-10): 5 Quality: Dull Consistency: Intermittent Improves with: None Worsens with: None Associated Symptoms: Denies other symptoms - Stanley Coma Scale Eye Response: (4) Open spontaneously Motor Response: (6) Obeys commands Verbal Response: (5) Oriented Stanley Total: 15 - Related Data Home Medications Medication Instructions Recorded Confirmed Last Taken Metformin HCl 500 mg PO BID 03/01/19 03/01/19 03/01/19 Allergies Allergy/AdvReac Type Severity Reaction Status Date / Time No Known Drug Allergies Allergy Verified 10/02/17 12:19 Travel Screening - Travel/Exposure Within Last 30 Days Have you traveled within the last 30 days?: No - Travel/Exposure Within Last Year Have you traveled outside the [place] in the last year?: No - Additonal Travel Details Have you been exposed to anyone with a communicable illness?: No - Travel Symptoms Symptom Screening: None Review of Systems Constitutional: Reports: Fever, Malaise, Weakness. Denies: Chills, Night sweats Eyes: Denies: Eye discharge, Eye pain ENT: Denies: Congestion, Ear pain, Epistaxis Respiratory: Denies: Cough, Dyspnea Cardiovascular: Denies: Chest pain, Dyspnea on exertion Endocrine: Reports: Fatigue. Denies: Heat or cold intolerance Gastrointestinal: Denies: Abdominal pain, Nausea, Vomiting Genitourinary: Denies: Incontinence, Retention Musculoskeletal: Denies: Arthralgia, Back pain, Gout, Joint swelling Skin: Denies: Bruising, Change in color Neurological: Denies: Abnormal gait, Confusion, Headache, Seizure, Tingling Psychiatric: Denies: Anxiety Hematological/Lymphatic: Denies: Anemia, Blood Clots Past Medical History - SOCIAL HISTORY Smoking Status: Never smoker Alcohol Use: None Drug Use: None - RESPIRATORY Hx Respiratory Disorders: Yes Hx Bronchitis: Yes - CARDIOVASCULAR Hx Cardio Disorders: Yes Hx Heart Attack: Yes - NEURO Hx Neuro Disorders: No - GI Hx GI Disorders: Yes Hx Abdominal Pain: Yes (recent onset, see HPI) - Hx Genitourinary Disorders: Yes Hx Bladder Problem: Yes (minor leakage wears a small pad) Hx Prostate Problems: Yes (removal pt had cancer) - ENDOCRINE Hx Endocrine Disorders: Yes Hx Diabetes: Yes (recent Dx on Metformin) - MUSCULOSKELETAL Hx Musculoskeletal Disorders: Yes Hx Arthritis: Yes - PSYCH Hx Psych Problems: No - HEMATOLOGY/ONCOLOGY Hx Hematology/Oncology Disorders: Yes Hx Cancer: Yes (pancreatic, prostate and skin cancer on forehead) Hx Chemotherapy: Yes (3x/moth) Hx Radiation Therapy: No Family Medical History Any Significant Family History?: Yes Hx Dementia: Mother Hx Diabetes: Grandparents Hx Heart Disease: Father Hx Resp Disorders: Father Hx Seizures: Mother Physical Exam - General General Appearance: Alert, Oriented x3, Cooperative, No acute distress Limitations: No limitations - Head Head exam: Atraumatic, Normocephalic, Normal inspection Head exam detail: negative: Abrasion, Contusion, Fajardo's sign, General tenderness, Hematoma, Laceration - Eye Eye exam: Normal appearance. negative: Conjunctival injection, Periorbital swelling, Periorbital tenderness, Scleral icterus - ENT Ear exam: negative: Auricular hematoma, Auricular trauma Nasal Exam: negative: Active bleeding, Discharge, Dried blood, Foreign body Mouth exam: negative: Drooling, Laceration, Muffled voice, Tongue elevation - Neck Neck exam: Normal inspection. negative: Meningismus, Tenderness - Respiratory Respiratory exam: Normal lung sounds bilaterally. negative: Rales, Respiratory distress, Rhonchi, Stridor - Cardiovascular Cardiovascular Exam: Regular rate, Normal rhythm, Normal heart sounds - GI/Abdominal GI/Abdominal exam: Soft. negative: Rebound, Rigid, Tenderness - Rectal Rectal exam: Deferred - exam: Deferred - Extremities Extremities exam: Normal inspection. negative: Pedal edema, Tenderness - Back Back exam: Denies: CVA tenderness (R), CVA tenderness (L) - Neurological Neurological exam: Alert, Normal gait, Oriented X3 - Psychiatric Psychiatric exam: Normal affect, Normal mood - Skin Skin exam: Normal color. negative: Abrasion Type of lesion: negative: abrasion Course Vital Signs 03/01/19 22:16 Temperature 99.0 F Pulse Rate [ 81 Left] Respiratory 16 Rate Blood Pressure 122/69 [Left Arm] Pulse Ox 96 - Reevaluation(s) Reevaluation #1: 03/01/19 23:22 CXR: Negative Port right chest wall Reevaluation #2: 03/01/19 23:39 Laboratory studies were reviewed and appear grossly unremarkable for an acute process except for the following: WBC 7.7 (4.8 02/28/19) Hgb 8.3 (9.2) GFR 42 (previous 57) CRP 6.27 AST 73 ALT 90 ALk phos 487 (487) UA was reviewed and appears grossly unremarkable for an acute process. Repeat temperature is 99.5. Will consult with on-call for Dr. Johnson. Reevaluation #3: 03/01/19 23:50 All results as well as the patient's clinical appearance/vitals were reviewed with Dr. Johnson, no further recommendations for antibiotic prophylaxis are felt to be indicated at this time. Dr. Orr's office will follow-up with the patient as well in 1-2 days as well. Patient and his family members were updated on my discussion with Dr. Johnson and all results, and are in agrement with the plan of care as discussed for discharge home at this time. Medical Decision Making - Lab Data Result diagrams: 03/01/19 22:50 03/01/19 22:50 Disposition Disposition: Discharge Clinical Impression: History of fever Pancreatic cancer Qualifiers: Pancreatic malignancy location: unspecified Qualified Code(s): C25.9 - Malignant neoplasm of pancreas, unspecified Disposition: Home, Self-Care Condition: (2) Stable Instructions: Weakness (ED) Additional Instructions: Return to ED if your symptoms worsen or if you have any concerns. Follow-up with Dr. Johnson in 1-3 days as directed. Forms: Patient Portal Access Time of Disposition: 23:53 Quality - Quality Measures Quality Measures: N/A - Blood Pressure Screening Does Patient Have Any of the Following: No Blood Pressure Classification: Normal BP Reading Systolic Measurement: 103 Diastolic Measurement: 59 Screening for High Blood Pressure: < Normal BP, F/U Not Required > [[id number]]
[2019-03-01 23:22] LABS: ABSOLUTE NEUTROPHIL COUNT 5.19; HEMATOCRIT 26.9 % (42.0-52.0); HEMOGLOBIN 8.3 gm/dl (14.0-18.0); MEAN CELL VOLUME 93.7 fl (81-97); MEAN CORPUSCULAR HEMOGLOBIN 28.9 pg (27-33); MEAN CORPUSCULAR HGB CONC 30.9 g/dl (32-36); MEAN PLATELET VOLUME 9.7 fl (7.4-10.4); PLATELET COUNT 135 K/uL (130-400); RED BLOOD COUNT 2.87 M/uL (4.40-5.70); RED CELL DISTRIBUTION WIDTH 18.5 % (11.5-14.5); WHITE BLOOD COUNT W/O DIFF 7.7 K/uL (4.2-12.2)
[2019-03-01 23:23] LABS: URINE APPEARANCE CLEAR; URINE BILIRUBIN NEGATIVE (NEGATIVE); URINE BLOOD TRACE-I (NEGATIVE); URINE COLOR YELLOW; URINE GLUCOSE (UA) NEGATIVE (NEGATIVE); URINE KETONE NEGATIVE (NEGATIVE); URINE LEUKOCYTE ESTERASE NEGATIVE (NEGATIVE); URINE NITRITE NEGATIVE (NEGATIVE); URINE PROTEIN NEGATIVE (NEGATIVE); URINE UROBILINOGEN 0.2 E.U./dL (0.20 - 1.00)
[2019-03-01 23:29] LABS: BILIRUBIN,TOTAL 0.3 mg/dL (0.2-1.0); CREATININE 1.7 mg/dL (0.7-1.2)
[2019-03-01 23:30] LABS: TOTAL PROTEIN 6.3 g/dL (6.6-8.7)
[2019-03-01 23:34] LABS: ALBUMIN 3.1 g/dL (4.0-5.0)
[2019-03-01 23:35] LABS: C-REACTIVE PROTEIN 6.27 mg/dL (<0.5)
[2019-03-01 23:39] LABS: URINE EPITHELIAL CELLS 0 - 2 (FEW); URINE RBC 0 - 2 (NONE SEEN); URINE WBC NONE SEEN (0-2/hpf)
[2019-03-01] MEDS ORDERED: HEPARIN SODIUM FLUSH 100 UNITS/ML SYR 5ML IVP ONE (23:54)
[2019-03-02 00:04] LABS: ANISOCYTOSIS 1+; ERYTHROCYTE SEDIMENTATION RATE 105 mm/hr (0-20); PLATELET ESTIMATE NORMAL (NORMAL)
--- NOTE | 2019-03-04 05:38 | RADIOLOGY REPORT ---
EXAM: CHEST 2 VIEWS HISTORY: FEVER. PANCREATIC CARCINOMA, ON CHEMOTHERAPY. TECHNIQUE: Upright PA and lateral views of the chest. COMPARISON: Chest one-view dated 01/10/2019. FINDINGS: A right internal jugular Albydr-l-vmeo catheter is now noted in placed with its tip in the mid SVC. The heart is not enlarged. The thoracic aorta is tortuous and atherosclerotic. A calcified granuloma is again suggested in the left lung apex. There is mild elevation of the right hemidiaphragm. No lung consolidation, costophrenic angle blunting, or pneumothorax. A metallic biliary stent is visualized. No acute osseous abnormality. IMPRESSION: 1. NO RADIOGRAPHIC EVIDENCE OF ACUTE CARDIOPULMONARY DISEASE. 2. BILIARY STENT IN PLACE. MILD ELEVATION OF THE RIGHT HEMIDIAPHRAGM. 3. RIGHT INTERNAL JUGULAR CENTRAL VENOUS CATHETER IN PLACE WITH ITS TIP IN THE MID SVC. 4. CALCIFIED GRANULOMA REDEMONSTRATED IN THE LEFT LUNG APEX. JOB NUMBER: [id number] MTDD
== END 2019-03-02 00:12 | disposition home or self-care (01) ==
LOC: ER 22:09
DX: R50.9 Fever, unspecified (principal); R53.1 Weakness; C25.9 Malignant neoplasm of pancreas, unspecified; I10 Essential (primary) hypertension; I25.2 Old myocardial infarction
CPT/HCPCS: 71046; 80053; 81001; 85027; 85651; 86140; 96374; 99284